=== PATIENT | male | born 1940 | race Caucasian/White ===

== ENCOUNTER 2022-02-08 12:32 | Outpatient (CLI) | payer MEDICARE, OTHER, SELFPAY ==
--- NOTE | ~2022-02-08 | US_ITS ---
EXAMINATION: US venous doppler LE RT DATE: 02/08/2022 13:14 INDICATION: Right lower limb swelling TECHNIQUE: Arias scale images without and with compression and Doppler images of the right lower extre mity veins were obtained. COMPARISON: 01/18/2015 FINDINGS: The right common femoral vein, profunda femoral vein, femoral vein, popliteal vein, peronea l trunk, posterior tibial veins, and greater saphenous vein are patent. IMPRESSION: 1. Patent right lower extremity veins. No evidence of deep venous thrombosis. Reviewed, dictated and finalized at location A.
== END 2022-02-08 12:33 | disposition home or self-care (01) ==
LOC: ANHIMG 12:34
PROVIDERS: PCP Internal Medicine; Visit Provider Internal Medicine
DX: M79.89 Other specified soft tissue disorders (principal)
CPT/HCPCS: 93971